=== PATIENT | male | born 1995 | race Caucasian/White ===

== ENCOUNTER 2017-10-06 07:01 | Emergency (ER) | payer BC ==
[2017-10-06] MEDS ORDERED: HYDROcodone/Acetaminophen 10/325 mg Tablet ONE (07:17)
[2017-10-06] MEDS ORDERED: Ketorolac Tromethamine 30 MG/ML VIAL ONE (07:18)
[2017-10-06] MEDS ORDERED: Dicyclomine 20 MG TAB ONE (07:19)
--- NOTE | 2017-10-06 19:18 | CT ---
CT ABDOMEN AND PELVIS WITHOUT CONTRAST 10/06/[address] of the abdomen and pelvis was done for evaluation of right flank pain. Axial slices were ac quired, then coronal reconstructions were done. There is a 4 mm calculus in the right ureter at the L3-L4 level. It causes mild right hydronephrosis. At least one other tiny nonobstructing calculus is seen in the right kidney. None are seen in the le ft. There might be a small cyst in the left kidney, but it would take ultrasound to prove it. The lung bases are clear. There are no effusions. The liver, spleen, pancreas, gallbladder, adrenal g lands, and abdominal aorta appear normal within the limitations of a noncontrast study. There is no w orrisome distention of bowel. A few minimally distended loops of proximal small bowel in the left upp er quadrant are probably a reactive ileus. No free air or free fluid was seen. CT of the pelvis shows no pelvic masses, calcifications of concern, or inflammatory changes. there ma y be a small amount of fluid in the rectovesical space. IMPRESSION: 4 mm mid right ureteral calculus causing mild right hydronephrosis. POS: HOME
== END 2017-10-06 08:17 | disposition home or self-care (01) ==
LOC: BURERS 07:01
DX: N13.2 Hydronephrosis with renal and ureteral calculous obstruction (principal)
CPT/HCPCS: 74176; 96372; J1885